=== PATIENT | female | born 1990 | race Caucasian/White ===

== ENCOUNTER → 2021-07-01 | Outpatient (REF) | payer OTHER | LOC: M LAB REF 09:53 | PROVIDERS: ATTEND Physician Assistant | DX: R05.9 Cough, unspecified (principal) ==

== ENCOUNTER → 2022-06-20 | Outpatient (REF) | payer OTHER ==
[2022-06-20 17:11] LABS: ALBUMIN 3.7 GM/DL (3.2-5.2); ALT/SGPT 23 U/L (12-78); BILIRUBIN,TOTAL 0.4 MG/DL (0.2-1.0); BLOOD UREA NITROGEN 13 MG/DL (7-18); CARBON DIOXIDE LEVEL 27 MEQ/L (21-32); CHLORIDE LEVEL 104 MEQ/L (98-107); CHOLESTEROL LEVEL 319 MG/DL (<200); CHOLESTEROL RISK RATIO 6.134 (<5); CREATININE FOR GFR 0.75 MG/DL (0.55-1.30); GLOMERULAR FILTRATION RATE > 60.0 (>60); GLUCOSE, FASTING 89 MG/DL (70-100); HDL CHOLESTEROL 52 MG/DL (>40); LDL CHOLESTEROL 246 MG/DL (<100); NON-HDL-C 267 MG/DL; POTASSIUM SERUM 4.5 MEQ/L (3.5-5.1); SODIUM LEVEL 137 MEQ/L (136-145); TOTAL PROTEIN 7.6 GM/DL (6.4-8.2); TRIGLYCERIDES LEVEL 103 MG/DL (<150)
== END ==
LOC: M LAB REF 16:02
PROVIDERS: ATTEND Nurse Practitioner Family
DX: E78.5 Hyperlipidemia, unspecified (principal)

== ENCOUNTER → 2022-09-19 | Outpatient (REF) | payer OTHER ==
[2022-09-19 17:01] LABS: BLOOD UREA NITROGEN 15 MG/DL (9-23); CALCIUM LEVEL 9.5 MG/DL (8.5-10.1); CARBON DIOXIDE LEVEL 27 MMOL/L (20-31); CHLORIDE LEVEL 104 MMOL/L (98-107); CHOLESTEROL LEVEL 247 MG/DL (<200); CHOLESTEROL RISK RATIO 5.39 (<5); CREATININE FOR GFR 0.84 MG/DL (0.55-1.30); GLOMERULAR FILTRATION RATE > 60.0 (>60); GLUCOSE, FASTING 87 MG/DL (60-100); HDL CHOLESTEROL 45.8 MG/DL (>40); LDL CHOLESTEROL 179.8 MG/DL (<100); NON-HDL-C 201 MG/DL; POTASSIUM SERUM 4.9 MMOL/L (3.5-5.1); SODIUM LEVEL 138 MMOL/L (136-145); TRIGLYCERIDES LEVEL 107 MG/DL (<150)
[2022-09-19 17:03] LABS: THYROID STIMULATING HORMONE 1.903 uIU/ML (0.55-4.78)
== END ==
LOC: M LAB REF 16:07
PROVIDERS: ATTEND Nurse Practitioner Family
DX: E78.5 Hyperlipidemia, unspecified (principal)

== ENCOUNTER 2023-05-03 19:54 | Emergency (ER) | payer OTHER ==
[~2023-05-03] VITALS: Ht 160 cm; Wt 83.3 kg
[~2023-05-03 19:54] MED LIST: LORA-1041; ROSU10TA6; VITA200016
[2023-05-03 21:00] LABS: BASO # 0.1 10^3/uL (0.0-0.2); BASO % 0.5 % (0.0-1.0); EOS # 0.1 10^3/uL (0.0-0.5); EOS % 0.7 % (0.0-3.0); HEMATOCRIT 40.7 % (36.0-47.0); HEMOGLOBIN 13.3 g/dl (12.0-15.5); LYMPH # 2.2 10^3/uL (1.5-5.0); LYMPH % 14.7 % (24.0-44.0); MEAN CORPUSCULAR HGB CONC 32.7 g/dl (32.0-36.5); MEAN CORPUSCULAR VOLUME 85.7 fl (80.0-96.0); MONO # 0.9 10^3/uL (0.0-0.8); MONO % 5.8 % (2.0-8.0); NEUTROPHILS # 11.9 10^3/uL (1.5-8.5); PLATELET COUNT, AUTOMATED 267 10^3/uL (150-450); RED BLOOD COUNT 4.75 10^6/uL (4.00-5.40); WHITE BLOOD COUNT 15.2 10^3/uL (4.0-10.0)
[2023-05-03 21:24] LABS: LIPASE 42 U/L (12-53)
[2023-05-03 21:28] LABS: ALBUMIN 3.7 G/DL (3.2-5.2); ALKALINE PHOSPHATASE 95 U/L (46-116); ALT/SGPT 19 U/L (7.0-40); AST/SGOT 9 U/L (<34); BILIRUBIN,DIRECT 0.1 MG/DL (<0.4); BILIRUBIN,TOTAL 0.4 MG/DL (0.3-1.2); BLOOD UREA NITROGEN 13 MG/DL (9-23); CALCIUM LEVEL 9.5 MG/DL (8.5-10.1); CARBON DIOXIDE LEVEL 28 MMOL/L (20-31); CHLORIDE LEVEL 102 MMOL/L (98-107); CREATININE FOR GFR 0.85 MG/DL (0.55-1.30); GLOMERULAR FILTRATION RATE > 60.0 (>60); GLUCOSE, FASTING 122 MG/DL (60-100); POTASSIUM SERUM 4.1 MMOL/L (3.5-5.1); SODIUM LEVEL 137 MMOL/L (136-145); TOTAL PROTEIN 7.4 G/DL (5.7-8.2)
[2023-05-03 21:46] LABS: HCG, SERUM QUALITATIVE NEGATIVE (NEGATIVE)
[2023-05-03] MEDS ORDERED: KETOROLAC 30 MG/ML 1ML VIAL IV ONE (21:50)
[2023-05-03 22:02] VITALS: TEMP 98
[2023-05-03] MEDS ORDERED: CIPROFLOXACIN 400 MG in IV 1 EA IV ONE (22:10)
[2023-05-03 22:30] VITALS: BP 125/67; O2SAT 99
[2023-05-03] MEDS ORDERED: CIPR500T39 PO (22:31)
[2023-05-03] MEDS ORDERED: PYRI1TAB5 PO (22:31)
[2023-05-03] MEDS ORDERED: PHENAZOPYRIDINE 100 MG TAB PO ONE (23:00)
== END 2023-05-03 23:12 | disposition home or self-care (01) ==
LOC: M ED 19:54
DX: O23.00 Infections of kidney in pregnancy, unspecified trimester (principal); Z88.1 Allergy status to other antibiotic agents
CPT/HCPCS: 74176; 80048; 80076; 81001; 83690; 84703; 85025; 87088; 87186; 96365; 96375; 99284; J0744; J1885

== ENCOUNTER → 2025-03-31 | Outpatient (CLI) | payer OTHER ==
[~2025-03-31] MED LIST changes: +CIPR500T39 PO; +PYRI1TAB5 PO; -ROSU10TA6; +ROSU10TA61
== END ==
LOC: M SLEEP 20:00
PROVIDERS: ATTEND Nurse Practitioner Family
DX: G47.33 Obstructive sleep apnea (adult) (pediatric) (principal); R06.83 Snoring; R53.83 Other fatigue

== ENCOUNTER 2025-05-01 18:32 | Emergency (ER) | payer OTHER ==
[~2025-05-01] VITALS: Ht 160 cm; Wt 80.7 kg
[2025-05-02 00:26] VITALS: BP 121/60; TEMP 98.3; O2SAT 99
[2025-05-02] MEDS: TETANUS/DIPHTH/ACEL. PERTUSSIS 0.5 ML SYR IM ONE (00:57)
[2025-05-02] MEDS: NAPROXEN 250 MG TAB PO ONE (00:58)
[2025-05-02] MEDS ORDERED: CIPR-249 PO (00:58)
[2025-05-02] MEDS ORDERED: NAPR220C24 PO (00:59)
[2025-05-02] MEDS ORDERED: METH-1164 PO (00:59)
[2025-05-02] MEDS: CIPROFLOXACIN 500 MG TABLET PO ONE (01:00)
== END 2025-05-02 01:07 | disposition home or self-care (01) ==
LOC: M ED 18:32
DX: S90.112A Contusion of left great toe without damage to nail, initial encounter (principal); S91.112A Laceration without foreign body of left great toe without damage to nail, initial encounter; W29.3XXA Contact with powered garden and outdoor hand tools and machinery, initial encounter; Y92.9 Unspecified place or not applicable; Y93.9 Activity, unspecified; Y99.9 Unspecified external cause status; E78.5 Hyperlipidemia, unspecified; Z79.899 Other long term (current) drug therapy; Z88.0 Allergy status to penicillin